=== PATIENT | male | born 1935 | race Caucasian/White ===

== ENCOUNTER 2016-06-10 15:07 | Inpatient (IN) | payer MEDICARE ==
[~2016-06-10] VITALS: Ht 182.9 cm; Wt 86.6 kg
[2016-06-10] MEDS ORDERED: LORA0.5T PO (15:34)
[2016-06-10] MEDS ORDERED: HYDR-552 PO (15:34)
[2016-06-10] MEDS ORDERED: CYAN10009 PO (15:34)
[2016-06-10] MEDS ORDERED: ACET-2154 PO (15:34)
[2016-06-10] MEDS ORDERED: DOCU-170 PO (15:34)
[2016-06-10] MEDS ORDERED: RIVA10TA PO (15:34)
[2016-06-10] MEDS ORDERED: PROT946L PO (15:34)
[2016-06-10] MEDS ORDERED: CALC-894 PO (15:34)
[2016-06-10] MEDS ORDERED: AMLO5TAB2 PO (15:34)
[2016-06-10] MEDS ORDERED: MULT1TAB11 PO (15:34)
[2016-06-10] MEDS ORDERED: NUTR1PAC14 PO (15:34)
[2016-06-10] MEDS ORDERED: FAMO20TA8 PO (15:34)
[2016-06-10] MEDS ORDERED: DIVA250T4 PO (15:34)
[2016-06-10] MEDS ORDERED: CHOL100030 PO (15:34)
[2016-06-10] MEDS ORDERED: MEMA10TA PO (15:34)
[2016-06-10] MEDS ORDERED: ASCO500C16 PO (15:34)
[2016-06-10] MEDS ORDERED: SENN8.6T6 PO (15:34)
[2016-06-10 15:39] LABS: BASOPHILS % (AUTO) 0.6 % (0.0-2.0); EOSINOPHILS # (AUTO) 0.2 K/uL (0.0-0.7); EOSINOPHILS % (AUTO) 2.3 % (0.0-7.0); HEMATOCRIT 42.7 % (36.7-47.1); HEMOGLOBIN 14.6 g/dL (12.5-16.3); LYMPHOCYTES # (AUTO) 1.3 K/uL (20.0-40.0); MEAN CORPUSCULAR HEMOGLOBIN 32.7 uug (23.8-33.4); MEAN CORPUSCULAR HGB CONC 34 g/dL (32.5-36.3); MEAN CORPUSCULAR VOLUME 95.6 fL (73.0-96.2); MONOCYTES # (AUTO) 0.6 K/uL (2.0-10.0); MONOCYTES % (AUTO) 8.4 % (0.0-11.0); NEUTROPHILS # (AUTO) 5.4 K/uL (1.8-8.9); NEUTROPHILS % (AUTO) 70.7 % (38.5-71.5); PLATELET COUNT (AUTO) 134 K/uL (152-348); RED BLOOD CELL COUNT(AUTO) 4.47 MIL/uL (4.06-5.63); WHITE BLOOD COUNT (AUTO) 7.5 K/uL (3.6-10.2)
[2016-06-10 15:42] LABS: CARBON DIOXIDE 28 mmol/L (21-32); CHLORIDE 107 mmol/L (98-107); CREATININE 1.1 mg/dL (0.6-1.3); GLUCOSE 129 mg/dL (74-106); POTASSIUM 4.6 mmol/L (3.5-5.1); SODIUM SERUM 144 mmol/L (136-145); UREA NITROGEN, BLOOD 24 mg/dL (7-18)
[2016-06-10 15:49] LABS: ETHANOL < 3 MG/DL (0-0)
[2016-06-10 15:50] LABS: ALANINE AMINOTRANSFERASE 21 U/L (16-63); ALBUMIN 3.3 g/dL (3.4-5.0); ALKALINE PHOSPHATASE 107 U/L (50-136); ASPARTATE AMINOTRANSFERASE 12 U/L (15-37); BILIRUBIN,DIRECT 0.1 mg/dL (0.0-0.2); BILIRUBIN,TOTAL 0.5 mg/dL (0.2-1.0); TOTAL PROTEIN, SERUM 6.4 g/dL (6.4-8.2)
[2016-06-10 15:51] LABS: ACETAMINOPHEN < 2.0 ug/mL (10-30)
--- NOTE | 2016-06-10 16:08 | NUR ---
MSE COMPLETED, PT ATTEMPTED TO VOID FOR URINALISIS SPECEMIN HOWEVER WAS NOT ABLE TO VOID AT THIS TIME, MRSA-NARES ORDERED AND SENT, BELONGINGS LIST AND ADMIT ORDER COMPLETED. SOHEILA RREPORT TO MHU RN. PT THEN TRANSPORTED TO [facility].
[2016-06-10] MEDS ORDERED: ACETAMINOPHEN 325 MG TABLET PO PRN (17:00)
[2016-06-10] MEDS ORDERED: MAG HYDROX/AL HYDROX/SIMETH 30 ML LIQUID UDC PO PRN (17:00)
[2016-06-10] MEDS ORDERED: TEMAZEPAM 7.5 MG CAPSULE PO PRN (17:00)
[2016-06-10] MEDS ORDERED: MAGNESIUM HYDROXIDE 30 ML LIQUID UDC PO PRN (17:00)
--- NOTE | 2016-06-10 18:00 | NUR ---
NOTIFIED DR BEAR OF ADMISSION, STATES HE WILL RECONCILE MEDS
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
[2016-06-10 20:04] VITALS: BP 162/86
[2016-06-10] MEDS: Z GUARD REMEDY PASTE 57 GM TUBE TOP SCH (21:00)
[2016-06-10] MEDS ORDERED: hydrALAZINE HCL 25 MG TABLET PO PRN (22:15)
[2016-06-10] MEDS ORDERED: HYDROCODONE/APAP 5-325MG TABLET PO PRN (22:15)
[2016-06-10] MEDS: AMLODIPINE 5 MG TABLET PO SCH (22:46)
[2016-06-10] MEDS: DOCUSATE SODIUM 100 MG CAPSULE PO SCH (22:47)
[2016-06-10] MEDS ORDERED: DOCUSATE SODIUM 100 MG CAPSULE PO ONE (22:49)
[2016-06-10] MEDS ORDERED: AMLODIPINE 5 MG TABLET ONE (22:50)
[2016-06-11 07:30] VITALS: BP 147/75
[2016-06-11] MEDS: PROTEIN SUPPLEMENT (PROSTAT) 30 ML LIQUID PO SCH (08:00)
[2016-06-11] MEDS: CHOLECALCIFEROL 1,000 UNIT TABLET PO SCH (08:44)
[2016-06-11] MEDS: FAMOTIDINE 20 MG TABLET PO SCH (08:44)
[2016-06-11] MEDS: ASCORBIC ACID 500 MG TABLET PO SCH (08:44)
[2016-06-11] MEDS: MULTIVIT, IRON, MIN NO. 8, FA TABLET PO SCH (08:44)
[2016-06-11] MEDS: AMLODIPINE 5 MG TABLET PO SCH ×2 (08:45→20:22)
[2016-06-11] MEDS: CYANOCOBALAMIN 1,000 MCG TABLET PO SCH (08:45)
[2016-06-11] MEDS: LORAZEPAM 1 MG TABLET PO PRN ×2 (08:45→22:47)
[2016-06-11] MEDS: CALCIUM CITRA-VITAMIN D 315 MG-250 UNITS TABLET PO SCH (08:45)
[2016-06-11] MEDS: Z GUARD REMEDY PASTE 57 GM TUBE TOP SCH ×2 (08:47→20:23)
[2016-06-11] MEDS ORDERED: NUTRITIONAL SUPPLEMENT PO SCH (09:00)
[2016-06-11] MEDS ORDERED: Medication Not On Formulary EA (Ascorbic Acid (Vitamin C CAPSULE) 500 MG) PO SCH (09:00)
[2016-06-11] MEDS ORDERED: Medication Not On Formulary EA (Protein Supplement (Promod) 30 ML) PO SCH (09:00)
[2016-06-11] MEDS ORDERED: Medication Not On Formulary EA (Multivitamins W-Minerals (Multivitamin With Minerals) 1 PO SCH (09:00)
--- NOTE | 2016-06-11 09:00 | NUR ---
NICOTINE PATCH IS NOT ORDERED, PT IS ALERGIC TO ADHESIVE TAPE.
--- NOTE | 2016-06-11 10:16 | NUR ---
Initial discharge plan: Pt resided at [facility] [[address] [place] [address]].TY spoke with pt and he reported wanting to return upon discharge.TY spoke with the pt's sister [Antoinette, ] and she would also like for the pt to return upon discharge.TY spoke with Lisa [[phone]] from [facility] and was told that the pt could return pending the results of an assessment.TY will reach out to [facility] prior to discharge so an assessment may be performed.TY will speak to MD, patient, and family to ensure a safe discharge plan is created.TY will create a safe and proper discharge plan.
--- NOTE | 2016-06-11 13:04 | NUR ---
Reviewed psychosocial done by Surjit Patel. Addendum: 06/11/16 at 1304 by VIRGILIO CRAWFORD Amended: Links added.
--- NOTE | 2016-06-11 13:08 | NUR ---
Reviewed psychosocial done by Surjit Patel. Addendum: 06/11/16 at 1309 by VIRGILIO CRAWFORD Amended: Links added.
[2016-06-11] MEDS: BOOST PLUS 237 ML LIQUID (VERY VANILLA) PO SCH (13:39)
[2016-06-11 16:02] VITALS: BP 118/72
[2016-06-11] MEDS: DIVALPROEX 250 MG TABLET.DR PO SCH ×2 (17:43→20:21)
[2016-06-11] MEDS: RIVAROXABAN 10 MG TABLET PO SCH ×2 (17:44→18:00)
[2016-06-11 20:20] VITALS: BP 136/77
[2016-06-11] MEDS: DOCUSATE SODIUM 100 MG CAPSULE PO SCH (20:21)
[2016-06-11] MEDS: SENNOSIDES 1 TABLET PO SCH (20:21)
[2016-06-11] MEDS: QUETIAPINE FUMARATE 25 MG TABLET PO SCH (20:22)
[2016-06-12 05:45] LABS: *AMPHETAMINE, URINE NEGATIVE (NEGATIVE); *BARBITURATE, URINE NEGATIVE (NEGATIVE); *CANNABINOID, URINE NEGATIVE (NEGATIVE); *COCCAINE, URINE NEGATIVE (NEGATIVE); *OPIATE, URINE NEGATIVE (NEGATIVE); *PHENCYCLIDINE SCREEN,URINE NEGATIVE (NEGATIVE)
[2016-06-12 07:30] VITALS: BP 151/79
[2016-06-12] MEDS: LORAZEPAM 1 MG TABLET PO PRN (08:01)
[2016-06-12] MEDS: FAMOTIDINE 20 MG TABLET PO SCH (08:22)
[2016-06-12] MEDS: MULTIVIT, IRON, MIN NO. 8, FA TABLET PO SCH (08:22)
[2016-06-12] MEDS: ASCORBIC ACID 500 MG TABLET PO SCH (08:22)
[2016-06-12] MEDS: DIVALPROEX 250 MG TABLET.DR PO SCH ×3 (08:22→20:42)
[2016-06-12] MEDS: CYANOCOBALAMIN 1,000 MCG TABLET PO SCH (08:22)
[2016-06-12] MEDS: CHOLECALCIFEROL 1,000 UNIT TABLET PO SCH (08:22)
[2016-06-12] MEDS: CALCIUM CITRA-VITAMIN D 315 MG-250 UNITS TABLET PO SCH (08:23)
[2016-06-12] MEDS: AMLODIPINE 5 MG TABLET PO SCH ×2 (08:23→20:42)
[2016-06-12] MEDS: PROTEIN SUPPLEMENT (PROSTAT) 30 ML LIQUID PO SCH (08:24)
[2016-06-12] MEDS: BOOST PLUS 237 ML LIQUID (VERY VANILLA) PO SCH (08:24)
[2016-06-12] MEDS: Z GUARD REMEDY PASTE 57 GM TUBE TOP SCH ×2 (08:30→20:48)
[2016-06-12 09:23] LABS: PHOSPHOROUS 3.7 mg/dL (2.5-4.9)
[2016-06-12 09:25] LABS: THYROID STIMULATING HORMONE 2.988 mIU/mL (0.358-3.740)
[2016-06-12 12:14] LABS: *BILIRUBIN,URIN NEGATIVE (NEGATIVE); *BLOOD, URINE NEGATIVE (NEGATIVE); *CLARITY,URINE CLEAR (CLEAR); *COLOR,URINE YELLOW (YELLOW); *KETONES,URINE NEGATIVE (NEGATIVE); *PROTEIN,URINE NEGATIVE (NEGATIVE); *UROBILINOGEN,URINE 0.2 E.U./dl (NORMAL); LEUKOCYTE ESTERASE ,URINE NEGATIVE (NEGATIVE); NITRITE, URINE NEGATIVE (NEGATIVE); UGLUCOSE NEGATIVE (NEGATIVE)
[2016-06-12 12:21] LABS: BACTERIA,URINE NONE SEEN /HPF (NONE SEEN); RBC,URINE 0-3 /HPF (0-3); SQUAMOUS EPITHELIAL CELL,UR FEW /HPF (NONE SEEN); WBC,URINE 0-3 /HPF (0-3)
[2016-06-12 16:00] VITALS: BP 145/77
[2016-06-12] MEDS: RIVAROXABAN 10 MG TABLET PO SCH (17:02)
[2016-06-12] MEDS: DOCUSATE SODIUM 100 MG CAPSULE PO SCH (20:42)
[2016-06-12] MEDS: SENNOSIDES 1 TABLET PO SCH (20:42)
[2016-06-12] MEDS: QUETIAPINE FUMARATE 25 MG TABLET PO SCH (20:42)
[2016-06-12 21:00] VITALS: BP 147/73
[2016-06-13] MEDS ORDERED: hydrALAZINE HCL 25 MG TABLET PO PRN
--- NOTE | 2016-06-13 06:55 | NUR ---
GPS: REMAIN CALM AND COOPERATIVE.SLEPT 7:30 HRS THROUGH THE NIGHT.ASSISTED WITH ADL'S. PATIENT IS INCONTINENT.CONTINUE PLAN OF CARE.
[2016-06-13 07:30] VITALS: BP 113/73
[2016-06-13] MEDS: CALCIUM CITRA-VITAMIN D 315 MG-250 UNITS TABLET PO SCH (08:46)
[2016-06-13] MEDS: DIVALPROEX 250 MG TABLET.DR PO SCH ×3 (08:46→20:17)
[2016-06-13] MEDS: CYANOCOBALAMIN 1,000 MCG TABLET PO SCH (08:46)
[2016-06-13] MEDS: MULTIVIT, IRON, MIN NO. 8, FA TABLET PO SCH (08:46)
[2016-06-13] MEDS: AMLODIPINE 5 MG TABLET PO SCH ×2 (08:47→20:17)
[2016-06-13] MEDS: CHOLECALCIFEROL 1,000 UNIT TABLET PO SCH (08:47)
[2016-06-13] MEDS: ASCORBIC ACID 500 MG TABLET PO SCH (08:47)
[2016-06-13] MEDS: FAMOTIDINE 20 MG TABLET PO SCH (08:47)
[2016-06-13] MEDS: BOOST PLUS 237 ML LIQUID (VERY VANILLA) PO SCH (08:48)
[2016-06-13] MEDS: PROTEIN SUPPLEMENT (PROSTAT) 30 ML LIQUID PO SCH (08:48)
[2016-06-13] MEDS: Z GUARD REMEDY PASTE 57 GM TUBE TOP SCH ×2 (08:49→20:17)
[2016-06-13 16:00] VITALS: BP 154/89
[2016-06-13] MEDS: RIVAROXABAN 10 MG TABLET PO SCH (17:34)
[2016-06-13] MEDS: DOCUSATE SODIUM 100 MG CAPSULE PO SCH (20:16)
[2016-06-13] MEDS: QUETIAPINE FUMARATE 25 MG TABLET PO SCH (20:17)
[2016-06-13] MEDS: SENNOSIDES 1 TABLET PO SCH (20:17)
[2016-06-14] MEDS: LORAZEPAM 1 MG TABLET PO PRN (06:20)
[2016-06-14 07:30] VITALS: BP 145/83
[2016-06-14 08:16] LABS: ALBUMIN 3.8 g/dL (3.4-5.0); BILIRUBIN,TOTAL 0.9 mg/dL (0.2-1.0); CREATININE 0.8 mg/dL (0.6-1.3); MAGNESIUM 2.1 mg/dL (1.8-2.4); PHOSPHOROUS 3.3 mg/dL (2.5-4.9); POTASSIUM 3.7 mmol/L (3.5-5.1); TOTAL PROTEIN, SERUM 7.5 g/dL (6.4-8.2)
[2016-06-14] MEDS: CHOLECALCIFEROL 1,000 UNIT TABLET PO SCH (08:25)
[2016-06-14] MEDS: ASCORBIC ACID 500 MG TABLET PO SCH (08:25)
[2016-06-14] MEDS: CALCIUM CITRA-VITAMIN D 315 MG-250 UNITS TABLET PO SCH (08:25)
[2016-06-14] MEDS: DIVALPROEX 250 MG TABLET.DR PO SCH ×3 (08:25→20:04)
[2016-06-14] MEDS: MULTIVIT, IRON, MIN NO. 8, FA TABLET PO SCH (08:25)
[2016-06-14 08:26] LABS: EOSINOPHILS # (AUTO) 0.2 K/uL (0.0-0.7); HEMATOCRIT 45.5 % (36.7-47.1); HEMOGLOBIN 15.8 g/dL (12.5-16.3); LYMPHOCYTES % (AUTO) 13.2 % (20.5-51.5); MEAN CORPUSCULAR HEMOGLOBIN 33.2 uug (23.8-33.4); MEAN CORPUSCULAR HGB CONC 35 g/dL (32.5-36.3); MEAN CORPUSCULAR VOLUME 95.6 fL (73.0-96.2); MONOCYTES # (AUTO) 0.7 K/uL (2.0-10.0); MONOCYTES % (AUTO) 9.2 % (0.0-11.0); NEUTROPHILS # (AUTO) 5.6 K/uL (1.8-8.9); NEUTROPHILS % (AUTO) 75.6 % (38.5-71.5); PLATELET COUNT (AUTO) 132 K/uL (152-348); RED BLOOD CELL COUNT(AUTO) 4.76 MIL/uL (4.06-5.63); WHITE BLOOD COUNT (AUTO) 7.5 K/uL (3.6-10.2)
[2016-06-14] MEDS: CYANOCOBALAMIN 1,000 MCG TABLET PO SCH (08:26)
[2016-06-14] MEDS: FAMOTIDINE 20 MG TABLET PO SCH (08:26)
[2016-06-14] MEDS: AMLODIPINE 5 MG TABLET PO SCH ×2 (08:26→20:05)
[2016-06-14] MEDS: Z GUARD REMEDY PASTE 57 GM TUBE TOP SCH ×2 (08:27→20:05)
[2016-06-14] MEDS: BOOST PLUS 237 ML LIQUID (VERY VANILLA) PO SCH (08:27)
[2016-06-14] MEDS: PROTEIN SUPPLEMENT (PROSTAT) 30 ML LIQUID PO SCH (08:28)
[2016-06-14] MEDS: SULFAMETH/TRIMETH 800/160 MG TABLET PO SCH ×2 (10:31→20:04)
[2016-06-14 15:46] VITALS: BP 144/75
[2016-06-14] MEDS: RIVAROXABAN 10 MG TABLET PO SCH (17:14)
[2016-06-14] MEDS: SENNOSIDES 1 TABLET PO SCH (20:04)
[2016-06-14] MEDS: QUETIAPINE FUMARATE 25 MG TABLET PO SCH (20:04)
[2016-06-14] MEDS: DOCUSATE SODIUM 100 MG CAPSULE PO SCH (20:04)
[2016-06-14 20:45] VITALS: BP 153/88
[2016-06-15 07:30] VITALS: BP 140/79
[2016-06-15] MEDS: CHOLECALCIFEROL 1,000 UNIT TABLET PO SCH (08:29)
[2016-06-15] MEDS: MULTIVIT, IRON, MIN NO. 8, FA TABLET PO SCH (08:29)
[2016-06-15] MEDS: ASCORBIC ACID 500 MG TABLET PO SCH (08:29)
[2016-06-15] MEDS: DIVALPROEX 250 MG TABLET.DR PO SCH ×3 (08:29→20:48)
[2016-06-15] MEDS: SULFAMETH/TRIMETH 800/160 MG TABLET PO SCH (08:29)
[2016-06-15] MEDS: FAMOTIDINE 20 MG TABLET PO SCH (08:29)
[2016-06-15] MEDS: CYANOCOBALAMIN 1,000 MCG TABLET PO SCH (08:29)
[2016-06-15] MEDS: CALCIUM CITRA-VITAMIN D 315 MG-250 UNITS TABLET PO SCH (08:29)
[2016-06-15] MEDS: AMLODIPINE 5 MG TABLET PO SCH ×2 (08:30→20:48)
[2016-06-15] MEDS: BOOST PLUS 237 ML LIQUID (VERY VANILLA) PO SCH (08:31)
[2016-06-15] MEDS: PROTEIN SUPPLEMENT (PROSTAT) 30 ML LIQUID PO SCH (08:31)
[2016-06-15] MEDS: Z GUARD REMEDY PASTE 57 GM TUBE TOP SCH ×2 (08:32→20:50)
[2016-06-15] MEDS: RIVAROXABAN 10 MG TABLET PO SCH (17:10)
[2016-06-15 20:32] VITALS: BP 122/60
[2016-06-15] MEDS: DOCUSATE SODIUM 100 MG CAPSULE PO SCH (20:47)
[2016-06-15] MEDS: QUETIAPINE FUMARATE 25 MG TABLET PO SCH (20:49)
[2016-06-15] MEDS: SENNOSIDES 1 TABLET PO SCH (20:49)
--- NOTE | 2016-06-16 06:44 | NUR ---
PT UP ON WHEELCHAIR AT THIS TIME, SLEPT 7.0 HRS DURING SHIFT, WAS GIVEN SHOWER IN AM. COOPERATIVE WITH CARE AND MEDS. SAFETY RENDERED.
[2016-06-16 07:30] VITALS: BP 134/77
[2016-06-16] MEDS: CYANOCOBALAMIN 1,000 MCG TABLET PO SCH (09:13)
[2016-06-16] MEDS: CALCIUM CITRA-VITAMIN D 315 MG-250 UNITS TABLET PO SCH (09:14)
[2016-06-16] MEDS: MULTIVIT, IRON, MIN NO. 8, FA TABLET PO SCH (09:14)
[2016-06-16] MEDS: CHOLECALCIFEROL 1,000 UNIT TABLET PO SCH (09:14)
[2016-06-16] MEDS: FAMOTIDINE 20 MG TABLET PO SCH (09:14)
[2016-06-16] MEDS: DIVALPROEX 250 MG TABLET.DR PO SCH ×3 (09:14→20:21)
[2016-06-16] MEDS: ASCORBIC ACID 500 MG TABLET PO SCH (09:15)
[2016-06-16] MEDS: AMLODIPINE 5 MG TABLET PO SCH ×2 (09:16→20:29)
[2016-06-16] MEDS: BOOST PLUS 237 ML LIQUID (VERY VANILLA) PO SCH (09:27)
[2016-06-16] MEDS: Z GUARD REMEDY PASTE 57 GM TUBE TOP SCH ×2 (09:27→21:42)
[2016-06-16] MEDS: PROTEIN SUPPLEMENT (PROSTAT) 30 ML LIQUID PO SCH (09:28)
[2016-06-16 16:00] VITALS: BP 141/73
[2016-06-16] MEDS: RIVAROXABAN 10 MG TABLET PO SCH (17:55)
[2016-06-16 20:10] VITALS: BP 142/71
[2016-06-16] MEDS: DOCUSATE SODIUM 100 MG CAPSULE PO SCH (20:21)
[2016-06-16] MEDS: QUETIAPINE FUMARATE 25 MG TABLET PO SCH (20:21)
[2016-06-16] MEDS: SENNOSIDES 1 TABLET PO SCH (20:21)
--- NOTE | 2016-06-17 00:21 | NUR ---
PATIENT RECEIVED IN BED AWAKE. PATIENT CALM AND COOPERATIVE. PATIENT COMPLAINT WITH HS MEDICATION. NO AGGRESSIVE OR COMBATIVE BEHAVIOR NOTED, WILL CONTINUE TO MONITOR. BED IN LOWEST POSITION, BED LOCKED, AND BED ALARM ON WHILE IN BED.
[2016-06-17 07:30] VITALS: BP 146/77
[2016-06-17] MEDS: ASCORBIC ACID 500 MG TABLET PO SCH (08:12)
[2016-06-17] MEDS: DIVALPROEX 250 MG TABLET.DR PO SCH (08:13)
[2016-06-17] MEDS: CYANOCOBALAMIN 1,000 MCG TABLET PO SCH (08:13)
[2016-06-17] MEDS: FAMOTIDINE 20 MG TABLET PO SCH (08:13)
[2016-06-17] MEDS: AMLODIPINE 5 MG TABLET PO SCH (08:13)
[2016-06-17] MEDS: MULTIVIT, IRON, MIN NO. 8, FA TABLET PO SCH (08:13)
[2016-06-17] MEDS: CALCIUM CITRA-VITAMIN D 315 MG-250 UNITS TABLET PO SCH (08:13)
[2016-06-17] MEDS: CHOLECALCIFEROL 1,000 UNIT TABLET PO SCH (08:13)
[2016-06-17] MEDS: Z GUARD REMEDY PASTE 57 GM TUBE TOP SCH (08:20)
[2016-06-17] MEDS: BOOST PLUS 237 ML LIQUID (VERY VANILLA) PO SCH (08:20)
[2016-06-17] MEDS: PROTEIN SUPPLEMENT (PROSTAT) 30 ML LIQUID PO SCH (08:21)
--- NOTE | 2016-06-17 12:54 | NUR ---
DC Note: The patient will be discharged today back to [facility] [[address]; [place] [address]] via ambulance. SW spoke with the patient and he is aware and agreeable with the discharge plan. Spoke with the pt's sister [Antoinette, ] and she is aware and agreeable with the discharge plan. SW also spoke patient's other sister Noa and she is also aware and agreeable with the discharge plan. Spoke with Alexandra and Lisa at the facility who stated that they will be able to accept the patient today. They are requesting that the patient's medication prescriptions be sent to [facility] . The patient will follow-up with topographical drafter Dr. Crump and psychiatrist Dr. Dillard at the facility.
--- NOTE | 2016-06-17 15:00 | NUR ---
1445 Patient discharged back to [facility] via ambulance stable conditions.Patient alert and ox3, denies SI/HI. No a/v hallucinations/no delusions noted.Vanessa, staff at [facility] aware patient is coming. Patient prescriptions already called in to his pharmacy.
[2016-06-17 15:19] VITALS: BP 133/68
== END 2016-06-17 14:45 | DRG 885 ==
LOC: ER 15:12 → GPS 16:09
PROVIDERS: ADMIT Psychiatry & Neurology Psychiatry; ATTEND Internal Medicine
DX: F39 Unspecified mood [affective] disorder (principal); D68.59 Other primary thrombophilia; I48.92 Unspecified atrial flutter; N39.0 Urinary tract infection, site not specified; R13.10 Dysphagia, unspecified; K29.70 Gastritis, unspecified, without bleeding; D69.6 Thrombocytopenia, unspecified; E88.09 Other disorders of plasma-protein metabolism, not elsewhere classified; I48.2 Chronic atrial fibrillation; Z87.01 Personal history of pneumonia (recurrent); Z91.81 History of falling; R73.9 Hyperglycemia, unspecified; F31.9 Bipolar disorder, unspecified
CPT/HCPCS: 36415; 71010; 80164; 80307; 83735; 84100; 84443; 85025; 87086; 93005; 97001; A4663; G0480-TC; G6040-TC; J3490

== ENCOUNTER 2016-06-19 13:35 | Inpatient (IN) | payer MEDICARE, OTHER ==
[~2016-06-19] VITALS: Ht 182.9 cm; Wt 85.3 kg
[~2016-06-19 13:35] MED LIST: ACET-2154 PO; AMLO5TAB2 PO; ASCO500C16 PO; CALC-894 PO; CHOL100030 PO; CYAN10009 PO; DOCU-170 PO; FAMO20TA8 PO; HYDR-552 PO; MULT1TAB11 PO; NUTR1PAC14 PO; PROT946L PO; RIVA10TA PO; SENN8.6T6 PO
[2016-06-19] MEDS ORDERED: DIVA250T6 PO (14:06)
[2016-06-19] MEDS ORDERED: MENT113P3 TP (14:06)
[2016-06-19] MEDS ORDERED: QUET25TA PO (14:06)
[2016-06-19 14:38] LABS: BASOPHILS # (AUTO) 0.1 K/uL (0.0-8.0); BASOPHILS % (AUTO) 0.8 % (0.0-2.0); EOSINOPHILS % (AUTO) 0.5 % (0.0-7.0); HEMATOCRIT 48.9 % (36.7-47.1); HEMOGLOBIN 16.5 g/dL (12.5-16.3); LYMPHOCYTES # (AUTO) 1.2 K/uL (20.0-40.0); LYMPHOCYTES % (AUTO) 14.9 % (20.5-51.5); MEAN CORPUSCULAR HEMOGLOBIN 32.7 uug (23.8-33.4); MEAN CORPUSCULAR HGB CONC 34 g/dL (32.5-36.3); MEAN CORPUSCULAR VOLUME 96.7 fL (73.0-96.2); MONOCYTES # (AUTO) 0.5 K/uL (2.0-10.0); MONOCYTES % (AUTO) 6.2 % (0.0-11.0); NEUTROPHILS # (AUTO) 5.9 K/uL (1.8-8.9); NEUTROPHILS % (AUTO) 77.6 % (38.5-71.5); PLATELET COUNT (AUTO) 140 K/uL (152-348); RED BLOOD CELL COUNT(AUTO) 5.06 MIL/uL (4.06-5.63); RED CELL DISTRIBUTION WIDTH 14.2 % (12.1-16.2); WHITE BLOOD COUNT (AUTO) 7.7 K/uL (3.6-10.2)
[2016-06-19 14:45] LABS: CALCIUM 9.7 mg/dL (8.5-10.1); CARBON DIOXIDE 28 mmol/L (21-32); CHLORIDE 100 mmol/L (98-107); CREATININE 1.2 mg/dL (0.6-1.3); GLUCOSE 105 mg/dL (74-106); SODIUM SERUM 140 mmol/L (136-145); UREA NITROGEN, BLOOD 19 mg/dL (7-18)
[2016-06-19 14:51] LABS: ALANINE AMINOTRANSFERASE 36 U/L (16-63); ALBUMIN 4.3 g/dL (3.4-5.0); ALKALINE PHOSPHATASE 126 U/L (50-136); ASPARTATE AMINOTRANSFERASE 20 U/L (15-37); BILIRUBIN,DIRECT 0.2 mg/dL (0.0-0.2); BILIRUBIN,TOTAL 0.9 mg/dL (0.2-1.0); TOTAL PROTEIN, SERUM 8.3 g/dL (6.4-8.2)
[2016-06-19 14:57] LABS: ETHANOL < 3 MG/DL (0-0)
[2016-06-19] MEDS ORDERED: TEMAZEPAM 7.5 MG CAPSULE PO PRN (16:30)
[2016-06-19] MEDS ORDERED: LORAZEPAM 0.5 MG TABLET PO PRN (16:30)
[2016-06-19] MEDS ORDERED: ACETAMINOPHEN 325 MG TABLET PO PRN (16:30)
[2016-06-19] MEDS ORDERED: MAGNESIUM HYDROXIDE 30 ML LIQUID UDC PO PRN (16:30)
[2016-06-19] MEDS ORDERED: MAG HYDROX/AL HYDROX/SIMETH 30 ML LIQUID UDC PO PRN (16:30)
[2016-06-19 16:38] VITALS: BP 149/70
[2016-06-19 20:42] VITALS: BP 144/76
[2016-06-19] MEDS: Z GUARD REMEDY PASTE 57 GM TUBE TOP SCH (21:23)
--- NOTE | 2016-06-20 06:18 | NUR ---
GPS/NSG Patient admitted from [facility] on a 5150 for Grave Disability, patient was according to the hold attempting to elope from the facility. Patient is unable to care for himself. Patient is able to transfer to wheelchair, Bilateral +2 edema noted on lower extremities, bunion on right foot. Patient slept comfortably through night a total of nine hours. No distress noted. Will continue to monitor for safety, last observed awake lying down. Able to verbalize needs. Continue to monitor for safety.
[2016-06-20 07:30] VITALS: BP 151/88
[2016-06-20] MEDS ORDERED: Medication Not On Formulary EA (Ascorbic Acid (Vitamin C CAPSULE) 500 MG) PO SCH (09:00)
[2016-06-20] MEDS ORDERED: AMLODIPINE 5 MG TABLET PO SCH (09:00)
[2016-06-20] MEDS: CALCIUM CITRA-VITAMIN D 315 MG-250 UNITS TABLET PO SCH (09:47)
[2016-06-20] MEDS: SENNOSIDES 1 TABLET PO SCH (09:48)
[2016-06-20] MEDS: ASCORBIC ACID 500 MG TABLET PO SCH (09:48)
[2016-06-20] MEDS: CYANOCOBALAMIN 1,000 MCG TABLET PO SCH (09:48)
[2016-06-20] MEDS: DOCUSATE SODIUM 100 MG CAPSULE PO SCH (09:48)
[2016-06-20] MEDS: CHOLECALCIFEROL 1,000 UNIT TABLET PO SCH (09:48)
[2016-06-20] MEDS: MULTIVIT, IRON, MIN NO. 8, FA TABLET PO SCH (09:48)
[2016-06-20] MEDS: Z GUARD REMEDY PASTE 57 GM TUBE TOP SCH ×2 (09:49→20:22)
[2016-06-20] MEDS: FAMOTIDINE 20 MG TABLET PO SCH (09:51)
[2016-06-20] MEDS: AMLODIPINE 5 MG TABLET PO SCH (09:51)
[2016-06-20] MEDS: DIVALPROEX SPRINKLE 125 MG CAP.SPRINK PO SCH ×2 (13:45→17:50)
[2016-06-20 15:44] VITALS: BP 121/60
[2016-06-20] MEDS: RIVAROXABAN 10 MG TABLET PO SCH (17:51)
[2016-06-20 20:22] VITALS: BP 131/72
[2016-06-20 20:23] VITALS: BP 131/72
[2016-06-20] MEDS ORDERED: QUETIAPINE FUMARATE 25 MG TABLET PO SCH (21:00)
--- NOTE | 2016-06-20 23:12 | NUR ---
PATIENT CALM UPON APPROACH, TALKING TO HIMSELF. NO AGGRESSIVE OR COMBATIVE BEHAVIOR AT THIS TIME,WILL CONTINUE TO MONITOR. PATIENT IS ABLE TO STATE HIS NEEDS. PATIENT IS COMPLIANT WITH HIS MEDICATIONS. WILL CONTINUE TO MONITOR. PATIENT STATED TO CARMELO KELLER " NICE BUTT." TRYING TO TOUCH HER ARM. BED IN LOWEST POSITION, BED LOCKED, AND BED ALARM ON WHILE IN BED.
[2016-06-21] MEDS: HYDROCODONE/APAP 5-325MG TABLET PO PRN (06:33)
[2016-06-21 07:30] VITALS: BP 136/72
[2016-06-21] MEDS: CHOLECALCIFEROL 1,000 UNIT TABLET PO SCH (08:28)
[2016-06-21] MEDS: MULTIVIT, IRON, MIN NO. 8, FA TABLET PO SCH (08:28)
[2016-06-21] MEDS: FAMOTIDINE 20 MG TABLET PO SCH (08:28)
[2016-06-21] MEDS: DOCUSATE SODIUM 100 MG CAPSULE PO SCH (08:28)
[2016-06-21] MEDS: CALCIUM CITRA-VITAMIN D 315 MG-250 UNITS TABLET PO SCH (08:28)
[2016-06-21] MEDS: ASCORBIC ACID 500 MG TABLET PO SCH (08:28)
[2016-06-21] MEDS: SENNOSIDES 1 TABLET PO SCH (08:28)
[2016-06-21] MEDS: CYANOCOBALAMIN 1,000 MCG TABLET PO SCH (08:28)
[2016-06-21] MEDS: AMLODIPINE 5 MG TABLET PO SCH (08:29)
[2016-06-21] MEDS: DIVALPROEX SPRINKLE 125 MG CAP.SPRINK PO SCH ×3 (08:29→17:15)
[2016-06-21] MEDS: Z GUARD REMEDY PASTE 57 GM TUBE TOP SCH ×2 (08:33→20:22)
[2016-06-21 15:27] VITALS: BP 138/70
[2016-06-21] MEDS: RIVAROXABAN 10 MG TABLET PO SCH (17:16)
[2016-06-21] MEDS: QUETIAPINE FUMARATE 25 MG TABLET PO SCH (20:11)
[2016-06-21 21:00] VITALS: BP 134/77
[2016-06-21] MEDS ORDERED: QUETIAPINE FUMARATE 25 MG TABLET PO SCH (21:00)
--- NOTE | 2016-06-21 22:04 | NUR ---
PATIENT CALM UPON APPROACH, TALKING TO HIMSELF. NO AGGRESSIVE OR COMBATIVE BEHAVIOR AT THIS TIME,WILL CONTINUE TO MONITOR. PATIENT IS ABLE TO STATE HIS NEEDS. PATIENT IS COMPLIANT WITH HIS MEDICATIONS. WILL CONTINUE TO MONITOR. BED IN LOWEST POSITION, BED LOCKED, AND BED ALARM ON WHILE IN BED.
[2016-06-22 07:28] LABS: BASOPHILS % (AUTO) 0.3 % (0.0-2.0); EOSINOPHILS # (AUTO) 0.2 K/uL (0.0-0.7); EOSINOPHILS % (AUTO) 3.4 % (0.0-7.0); HEMATOCRIT 39.4 % (36.7-47.1); HEMOGLOBIN 13.8 g/dL (12.5-16.3); MEAN CORPUSCULAR HEMOGLOBIN 33.6 uug (23.8-33.4); MEAN CORPUSCULAR HGB CONC 35 g/dL (32.5-36.3); MEAN CORPUSCULAR VOLUME 96.1 fL (73.0-96.2); MONOCYTES # (AUTO) 0.7 K/uL (2.0-10.0); MONOCYTES % (AUTO) 10.1 % (0.0-11.0); NEUTROPHILS # (AUTO) 4.6 K/uL (1.8-8.9); NEUTROPHILS % (AUTO) 70.2 % (38.5-71.5); PLATELET COUNT (AUTO) 116 K/uL (152-348); RED BLOOD CELL COUNT(AUTO) 4.11 MIL/uL (4.06-5.63); RED CELL DISTRIBUTION WIDTH 14.1 % (12.1-16.2); WHITE BLOOD COUNT (AUTO) 6.5 K/uL (3.6-10.2)
[2016-06-22 07:30] VITALS: BP 135/70
[2016-06-22 07:40] LABS: CALCIUM 8.4 mg/dL (8.5-10.1); CREATININE 0.8 mg/dL (0.6-1.3); POTASSIUM 4.2 mmol/L (3.5-5.1)
[2016-06-22] MEDS: CALCIUM CITRA-VITAMIN D 315 MG-250 UNITS TABLET PO SCH (08:26)
[2016-06-22] MEDS: AMLODIPINE 5 MG TABLET PO SCH (08:27)
[2016-06-22] MEDS: SENNOSIDES 1 TABLET PO SCH (08:29)
[2016-06-22] MEDS: DOCUSATE SODIUM 100 MG CAPSULE PO SCH (08:29)
[2016-06-22] MEDS: FAMOTIDINE 20 MG TABLET PO SCH (08:29)
[2016-06-22] MEDS: DIVALPROEX SPRINKLE 125 MG CAP.SPRINK PO SCH ×3 (08:29→17:33)
[2016-06-22] MEDS: CYANOCOBALAMIN 1,000 MCG TABLET PO SCH (08:30)
[2016-06-22] MEDS: QUETIAPINE FUMARATE 25 MG TABLET PO SCH ×3 (08:30→20:25)
[2016-06-22] MEDS: ASCORBIC ACID 500 MG TABLET PO SCH (08:30)
[2016-06-22] MEDS: MULTIVIT, IRON, MIN NO. 8, FA TABLET PO SCH (08:30)
[2016-06-22] MEDS: CHOLECALCIFEROL 1,000 UNIT TABLET PO SCH (08:30)
[2016-06-22] MEDS: Z GUARD REMEDY PASTE 57 GM TUBE TOP SCH ×2 (08:31→21:41)
[2016-06-22] MEDS: NICOTINE 14 MG/24HR PATCH TD SCH (08:31)
[2016-06-22] MEDS: HYDROCODONE/APAP 5-325MG TABLET PO PRN (10:53)
--- NOTE | 2016-06-22 11:45 | NUR ---
WOUND CARE CONSULT: PT PRESENTS WITH RT BUNION SCAR. NO OPEN WOUNDS NOTED. WILL SEE PRN. Addendum: 06/22/16 at 1146 by FLY SUTTON RN Amended: Links added.
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
--- NOTE | 2016-06-22 14:43 | NUR ---
Initial discharge instructions: The patient resides at [facility] [[address] [place] [address]; ]. TY spoke with Alexandra in admissions at the facility who stated that they are recommending the patient be discharged to a SNF with memory care upon discharge (short term) and that they would like to consider accepting the patient back to their memory care unit at the assisted living after the patient receives rehabilitation. Spoke with the pt's sister [Antoinette, ] and she requested that Dr. Ball calls the patient's primary care physician Dr. Jonnie Crump (Office to discuss the patient. TY will speak to MD, patient, and family regarding discharge plans. SS will form a safe and proper discharge.
[2016-06-22 15:31] VITALS: BP 108/61
[2016-06-22] MEDS: RIVAROXABAN 10 MG TABLET PO SCH (17:34)
[2016-06-22 20:45] VITALS: BP 125/67
--- NOTE | 2016-06-22 21:00 | NUR ---
Patient received resting comfortably in bed. Pt is disoriented and depressed mood. No acute distress noted. Compliant with PO medications at bedtime. No aggressive or combative behavior noted. Bed in low and locked position. Safety measures provided.
[2016-06-23 07:30] VITALS: BP 146/76
[2016-06-23 07:50] LABS: PHOSPHOROUS 3.7 mg/dL (2.5-4.9)
[2016-06-23] MEDS: DOCUSATE SODIUM 100 MG CAPSULE PO SCH (08:39)
[2016-06-23] MEDS: MULTIVIT, IRON, MIN NO. 8, FA TABLET PO SCH (08:39)
[2016-06-23] MEDS: CALCIUM CITRA-VITAMIN D 315 MG-250 UNITS TABLET PO SCH (08:39)
[2016-06-23] MEDS: SENNOSIDES 1 TABLET PO SCH (08:39)
[2016-06-23] MEDS: CYANOCOBALAMIN 1,000 MCG TABLET PO SCH (08:39)
[2016-06-23] MEDS: CHOLECALCIFEROL 1,000 UNIT TABLET PO SCH (08:39)
[2016-06-23] MEDS: AMLODIPINE 5 MG TABLET PO SCH (08:40)
[2016-06-23] MEDS: FAMOTIDINE 20 MG TABLET PO SCH (08:40)
[2016-06-23] MEDS: ASCORBIC ACID 500 MG TABLET PO SCH (08:40)
[2016-06-23] MEDS: QUETIAPINE FUMARATE 25 MG TABLET PO SCH ×3 (08:40→21:09)
[2016-06-23] MEDS: DIVALPROEX SPRINKLE 125 MG CAP.SPRINK PO SCH ×3 (08:41→18:00)
[2016-06-23] MEDS: Z GUARD REMEDY PASTE 57 GM TUBE TOP SCH ×2 (08:49→21:10)
[2016-06-23] MEDS: NICOTINE 14 MG/24HR PATCH TD SCH (08:49)
--- NOTE | 2016-06-23 15:46 | NUR ---
WEEKLY MEETING PO INTAKE 75-100%, NO DIET RECOMMENDATIONS AT THIS TIME LAST BM ON 06/22 SKIN INTACT NOTED 9 LB WT GAIN IN ONE DAY, NOTED DIFFERENT METHODS OF MEASUREMENT, REC TO [facility] PT MEDS: VIT B12, COLACE, PEPCID, SENNA, VIT C, MVI, VIT D, NORVASC DNI - NORVASC ON LOW NA DIET LABS: 06/22: CA 8.4 (L) MONITOR PO INTAKE, LABS, WT NO NUTRITION DIAGNOSIS AT THIS TIME Addendum: 06/23/16 at [address] Amended: Links added.
[2016-06-23 16:00] VITALS: BP 132/67
[2016-06-23] MEDS: RIVAROXABAN 10 MG TABLET PO SCH (18:01)
[2016-06-23 20:25] VITALS: BP 125/63
--- NOTE | 2016-06-24 06:07 | NUR ---
PT SLEPT INTERMITTENTLY THROUGH OUT THE NIGHT. REUSED SHOWER THIS MORNING DESPITE ENCOURAGEMENT. TOILETING OFFERED. NO ACUTE DISTRESS NOTED. SAFETY MEASURES PROVIDED.
[2016-06-24 07:30] VITALS: BP 162/80
[2016-06-24] MEDS: SENNOSIDES 1 TABLET PO SCH (08:52)
[2016-06-24] MEDS: DIVALPROEX SPRINKLE 125 MG CAP.SPRINK PO SCH ×3 (08:52→17:08)
[2016-06-24] MEDS: CALCIUM CITRA-VITAMIN D 315 MG-250 UNITS TABLET PO SCH (08:52)
[2016-06-24] MEDS: DOCUSATE SODIUM 100 MG CAPSULE PO SCH (08:52)
[2016-06-24] MEDS: CYANOCOBALAMIN 1,000 MCG TABLET PO SCH (08:52)
[2016-06-24] MEDS: ASCORBIC ACID 500 MG TABLET PO SCH (08:53)
[2016-06-24] MEDS: QUETIAPINE FUMARATE 25 MG TABLET PO SCH ×3 (08:54→20:43)
[2016-06-24] MEDS: AMLODIPINE 5 MG TABLET PO SCH (08:54)
[2016-06-24] MEDS: CHOLECALCIFEROL 1,000 UNIT TABLET PO SCH (08:54)
[2016-06-24] MEDS: MULTIVIT, IRON, MIN NO. 8, FA TABLET PO SCH (08:54)
[2016-06-24] MEDS: FAMOTIDINE 20 MG TABLET PO SCH (08:54)
[2016-06-24] MEDS: NICOTINE 14 MG/24HR PATCH TD SCH (09:00)
[2016-06-24] MEDS: Z GUARD REMEDY PASTE 57 GM TUBE TOP SCH ×2 (09:01→21:13)
[2016-06-24] MEDS ORDERED: hydrALAZINE HCL 25 MG TABLET PO PRN (15:00)
[2016-06-24 15:18] VITALS: BP 135/72
[2016-06-24] MEDS: RIVAROXABAN 10 MG TABLET PO SCH (17:11)
[2016-06-24 20:00] VITALS: BP 142/80
[2016-06-25 07:30] VITALS: BP 135/75
[2016-06-25 08:00] LABS: BASOPHILS % (AUTO) 0.1 % (0.0-2.0); EOSINOPHILS # (AUTO) 0.2 K/uL (0.0-0.7); EOSINOPHILS % (AUTO) 2.7 % (0.0-7.0); HEMATOCRIT 41.3 % (40-50); HEMOGLOBIN 14.2 G/DL (14.0-18.0); LYMPHOCYTES % (AUTO) 15.2 % (20.5-51.5); MEAN CORPUSCULAR HEMOGLOBIN 33.1 UUG (27.0-31.0); MEAN CORPUSCULAR HGB CONC 34 g/dL (32.0-37.0); MEAN CORPUSCULAR VOLUME 96.1 FL (82.0-92.0); MONOCYTES # (AUTO) 0.6 K/uL (2.0-10.0); MONOCYTES % (AUTO) 9.7 % (0.0-11.0); NEUTROPHILS # (AUTO) 4.5 K/uL (1.8-8.9); NEUTROPHILS % (AUTO) 72.3 % (38.5-71.5); PLATELET COUNT (AUTO) 132 K/UL (150-450); RED CELL DISTRIBUTION WIDTH 13.7 % (11.5-14.5); WHITE BLOOD COUNT (AUTO) 6.3 K/UL (4.0-11.2)
[2016-06-25 08:23] LABS: BILIRUBIN,TOTAL 0.5 mg/dL (0.2-1.0); CALCIUM 8.3 mg/dL (8.5-10.1); MAGNESIUM 1.8 mg/dL (1.8-2.4); PHOSPHOROUS 3.4 mg/dL (2.5-4.9); POTASSIUM 3.9 mmol/L (3.5-5.1); TOTAL PROTEIN, SERUM 6.1 g/dL (6.4-8.2)
--- NOTE | 2016-06-25 08:24 | NUR ---
DC Note: The patient will be discharged today back to [facility] with a 24 hour caregiver [[address] [place] [address]; ] via ambulance. TY spoke with the patient and he is aware and agreeable with the discharge plan. Spoke with the pt's sister [Antoinette, ] and she is aware and agreeable with the discharge plan. TY received a voicemail from Alexandra Davis in admissions at the facility yesterday, stating that they will be able to accept the patient today. Spoke with KIMBERLY Gonzalez today as well who also stated that they will be accepting the patient today. They are requesting that the patient's medication prescriptions be faxed as well, attention to: KIMBERLY Gonzalez . The patient will follow-up with senior media buyer Dr. Crump and psychiatrist Dr. Dillard at the facility.
[2016-06-25] MEDS: MULTIVIT, IRON, MIN NO. 8, FA TABLET PO SCH (08:58)
[2016-06-25] MEDS: CHOLECALCIFEROL 1,000 UNIT TABLET PO SCH (08:58)
[2016-06-25] MEDS: CALCIUM CITRA-VITAMIN D 315 MG-250 UNITS TABLET PO SCH (08:58)
[2016-06-25] MEDS: SENNOSIDES 1 TABLET PO SCH (08:58)
[2016-06-25] MEDS: ASCORBIC ACID 500 MG TABLET PO SCH (08:58)
[2016-06-25] MEDS: DOCUSATE SODIUM 100 MG CAPSULE PO SCH (08:58)
[2016-06-25] MEDS: FAMOTIDINE 20 MG TABLET PO SCH (08:58)
[2016-06-25] MEDS: CYANOCOBALAMIN 1,000 MCG TABLET PO SCH (08:58)
[2016-06-25 08:59] VITALS: BP 135/75
[2016-06-25] MEDS: AMLODIPINE 5 MG TABLET PO SCH (08:59)
[2016-06-25] MEDS: DIVALPROEX SPRINKLE 125 MG CAP.SPRINK PO SCH ×2 (08:59→13:21)
[2016-06-25] MEDS: QUETIAPINE FUMARATE 25 MG TABLET PO SCH (08:59)
[2016-06-25] MEDS: NICOTINE 14 MG/24HR PATCH TD SCH (09:00)
[2016-06-25] MEDS: Z GUARD REMEDY PASTE 57 GM TUBE TOP SCH (09:08)
--- NOTE | 2016-06-25 14:45 | NUR ---
1130 CALLED REPORT TO [facility], SPOKE WITH RODOLFO, INFORMED ABOUT PATIENT WILL BE DISCHARGED TODAY, HIDE BUYER TIME WILL BE 1430 BY AMBULANCE. ALSO, REPORT GIVEN REGARDING PATIENT MEDICATIONS TO CONTINUE AT THE FACILITY. 1430 PATIENT PICKED UP AMBULANCE AND DISCHARGE TO THE FACILITY MENTIONED ABOVE. PATIENT DENIES SUICIDAL THOUGHTS/ DENIES HOMICIDAL IDEATION. NO AV HALLUCINATION/NO DELUSIONS NOTES.
[2016-06-25] MEDS ORDERED: QUETIAPINE FUMARATE 25 MG TABLET PO SCH (17:00)
== END 2016-06-25 14:30 | DRG 885 ==
LOC: ER 13:35 → GPS 16:16
PROVIDERS: ADMIT Psychiatry & Neurology Psychiatry; ATTEND Family Medicine
DX: F39 Unspecified mood [affective] disorder (principal); I48.92 Unspecified atrial flutter; F31.9 Bipolar disorder, unspecified; I48.2 Chronic atrial fibrillation; K21.9 Gastro-esophageal reflux disease without esophagitis; D50.9 Iron deficiency anemia, unspecified; D69.6 Thrombocytopenia, unspecified; E88.09 Other disorders of plasma-protein metabolism, not elsewhere classified; Z87.01 Personal history of pneumonia (recurrent); F29 Unspecified psychosis not due to a substance or known physiological condition; I10 Essential (primary) hypertension; D75.1 Secondary polycythemia; Z91.81 History of falling; M62.81 Muscle weakness (generalized); R26.9 Unspecified abnormalities of gait and mobility
CPT/HCPCS: 36415; 71010; 80164; 83735; 84100; 85025; 85730; 93005; 97001; 97110; 97116; 97530; A4663; G6040-TC